=== PATIENT | female | born 1935 | race Caucasian/White ===

== ENCOUNTER 2017-12-05 12:22 | Emergency (ER) | payer OTHER ==
[~2017-12-05] VITALS: Ht 154.9 cm; Wt 34.0 kg
[2017-12-05] MEDS ORDERED: SODIUM CHLORIDE 0.9% 500ML 500 ML IV STA (12:42)
[2017-12-05] MEDS ORDERED: ASPIRIN 81 MG CHEW TAB PO ONE (12:45)
[2017-12-05] MEDS ORDERED: LORAZEPAM INJ 2 MG/ML VIAL IV ONE (13:00)
[2017-12-05 13:26] LABS: BASOPHILS # (AUTO) 0.1 (0.0-0.1); BASOPHILS % 0.6 % (0.0-1.0); EOSINOPHILS # (AUTO) 0.1 (0.0-0.4); HEMATOCRIT 46.5 % (34.2-44.1); HEMOGLOBIN 15.1 g/dL (12.0-16.0); LYMPHOCYTES # (AUTO) 2.1 (1.0-3.2); LYMPHOCYTES % 17.6 % (18.0-39.1); MEAN CORPUSCULAR HEMOGLOBIN 31.3 pg (28-32); MEAN CORPUSCULAR HGB CONC 32.5 g/dL (31-35); MEAN CORPUSCULAR VOLUME 96.3 fL (81-99); MONOCYTES # (AUTO) 0.5 (0.2-0.8); MONOCYTES % 4.2 % (4.4-11.3); NEUTROPHILS # (AUTO) 9.3 (2.1-6.9); NEUTROPHILS % 76.3 % (38.7-80.0); PLATELET COUNT 351 x10e3/uL (140-360); RED BLOOD COUNT 4.83 x10e6/uL (3.6-5.1); RED CELL DISTRIBUTION WIDTH 13.4 % (11.7-14.4)
[2017-12-05 13:35] LABS: INR 1.05; PARTIAL THROMBOPLASTIN TIME 33.1 seconds (23.8-35.5); PROTHROMBIN TIME 12.9 seconds (11.9-14.5)
[2017-12-05 13:42] LABS: ALANINE AMINOTRANSFERASE 11 IU/L (0-55); ALBUMIN 3.6 g/dL (3.5-5.0); ALKALINE PHOSPHATASE 64 IU/L (40-150); ANION GAP 14.7 mmol/L (8-16); BLOOD UREA NITROGEN 21 mg/dL (7-26); BUN/CREATININE RATIO 28 (6-25); CALCIUM 10.1 mg/dL (8.4-10.2); CARBON DIOXIDE 32 mmol/L (22-29); CHLORIDE 98 mmol/L (98-107); CREATINE KINASE 51 IU/L (29-168); CREATININE, SERUM 0.75 mg/dL (0.57-1.11); EST GLOMERULAR FILTRATION RATE > 60 ML/MIN (60-); GLUCOSE 101 mg/dL (74-118); MAGNESIUM 2.1 MG/DL (1.3-2.1); POTASSIUM 3.7 mmol/L (3.5-5.1); SODIUM 141 mmol/L (136-145)
[2017-12-05 14:02] LABS: THYROID STIMULATING HORMONE 0.836 uIU/mL (0.350-4.940)
--- NOTE | 2017-12-05 15:04 | Diagnostic Imaging Report ---
EXAMINATION: CHEST SINGLE (PORTABLE) INDICATION: \S\ERMD ORDER \[id number] \S\[id number] \S\Y COMPARISON: None FINDINGS: AP view TUBES and LINES: None. LUNGS: Lungs are hyperinflated. Scattered calcified granulomas. There is no evidence of pneumonia or pulmonary edema. PLEURA: No pleural effusion or pneumothorax. HEART AND MEDIASTINUM: The cardiomediastinal silhouette is unremarkable. There are atherosclerotic calcifications within the aorta. BONES AND SOFT TISSUES: No acute osseous lesion. Decreased right subacromial space suggestive of rotator cuff tear. Soft tissues are unremarkable. UPPER ABDOMEN: No free air under the diaphragm. IMPRESSION: No acute thoracic abnormality. Signed by: DR. Mic Dior MD on 12/05/2017 3:01 PM
--- NOTE | 2017-12-05 15:13 | Diagnostic Imaging Report ---
Exam: Head CT without contrast History: Altered mental status Comparison studies: None Technique: Axial images were obtained from the skull base to the vertex. Coronal and sagittal images reconstructed from the axial data. Radiation dose: Total DLP: 1612 mGy*cm. Estimated effective dose: DLP x 0.015 Intravenous contrast: None Findings: Exam is limited by artifacts related to patient motion and was repeated multiple x2 obtain optimal imaging. Scalp: No abnormalities. Bones: No fractures, blastic or lytic lesions. Brain sulci: Sylvian fissures are moderately prominent. Remaining sulci are within normal limits for age. Ventricles: Moderately dilated lateral and third ventricles disproportionate to sulcal prominence. Findings may be related to degree of central greater than peripheral cortical volume loss. Consider normal pressure hydrocephalus in the appropriate clinical setting. Extra-axial spaces: No masses, no fluid collection. Parenchyma: No gross mass, acute hemorrhage or acute cortical vascular insults. There is a chronic insult along the lingual and cuneus gyri of the right occipital lobe in the right [employer] territory. Confluent hypodensities in the supratentorial white matter are nonspecific most compatible with chronic microvascular ischemic changes. 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 Sellar/suprasellar region: No abnormalities. Craniocervical junction: Patent foramen magnum. No Chiari one malformation. Incidental findings: Atherosclerotic calcifications in the carotid siphons. Right frontal sinus and anterior ethmoids are opacified. IMPRESSION: Exam is limited by artifacts related to patient motion. No gross acute abnormalities. Chronic findings: 1. Moderate chronic microvascular ischemic changes. 2. Chronic right occipital vascular insult. 3. Chronic lacunar insults in the thalami and right cerebellum. 4. Nonspecific ventriculomegaly. Consider NPH in the appropriate clinical setting. No acute hydrocephalus. Signed by: Dr. Marcus Najera M.D. on 12/05/2017 3:10 PM
[2017-12-05 15:49] LABS: AMPHETAMINES SCREEN,URINE NEGATIVE (NEGATIVE); BENZODIAZEPINES SCREEN,URINE POSITIVE (NEGATIVE); BILIRUBIN,URINE NEGATIVE (NEGATIVE); CLARITY,URINE CLEAR (CLEAR); COLOR,URINE YELLOW (YELLOW); KETONES,URINE NEGATIVE (NEGATIVE); LEUKOCYTE ESTERASE ,URINE NEGATIVE (NEGATIVE); NITRITE,URINE NEGATIVE (NEGATIVE); PHENCYCLIDINE SCREEN,URINE NEGATIVE (NEGATIVE); PROTEIN,URINE DIPSTICK NEGATIVE (NEGATIVE); URINE UROBILINOGEN 0.2 mg/dL (0.2 - 1)
[2017-12-05 15:58] LABS: BACTERIA,URINE RARE /HPF; EPITHELIAL CELLS,URINE RARE /LPF; RBC,URINE 0-5 /HPF (0-5); WBC,URINE (MAN) 0-5 /HPF (0-5)
== END 2017-12-05 17:53 | disposition home or self-care (01) ==
LOC: ER 12:22
DX: R41.82 Altered mental status, unspecified (principal); F03.90 Unspecified dementia, unspecified severity, without behavioral disturbance, psychotic disturbance, mood disturbance, and anxiety; F17.210 Nicotine dependence, cigarettes, uncomplicated
CPT/HCPCS: 36415; 70450; 71045; 80053; 80307; 81001; 82550; 82553; 83735; 83880; 84443; 84484; 85025; 85610; 85730; 87040; 87071; 87086; 87205; 93005; 99284; J2060; J7040